=== PATIENT | female | born 1970 | race Caucasian/White ===

== ENCOUNTER → 2016-12-17 | Outpatient (CLI) | payer OTHER | LOC: PCVCIMAG 14:40 | PROVIDERS: ATTEND Internal Medicine Cardiovascular Disease | DX: I51.81 Takotsubo syndrome (principal); I72.6 Aneurysm of vertebral artery; I25.10 Atherosclerotic heart disease of native coronary artery without angina pectoris | CPT/HCPCS: 93306 ==